=== PATIENT | female | born 2000 | race Caucasian/White ===

== ENCOUNTER 2025-02-22 07:57 | Emergency (ER) | payer MEDICAID, SELFPAY ==
--- OUTSIDE RECORDS SUMMARY | 2021-04-13 07:33 | XMS_ITS | Continuity of Care Document ---
Author Organization [facility] Address [address] [address] [place] [address] Phone Care Team Providers Care Compensation Intern Name Role Phone Update, Tech[employer] Unavailable Unavailable [...] Provider Providers Copied on Encounter Eye [facility], [address] [address], [place], [place], [address], tel:[phone] [place] No Information Update [employer]. [address] [place], [place], [address]. tel:[phone] Eye [facility], [address] [address], [place], [place], [address], tel:[phone] Ashleigh Bedoya Patient is here for a complete dilated eye exam. (chief complaint) Examination of eyes and vision with abnormal findings Z01.01Regula r astigmatism, bilateral H52.223 7 Raghu Carrasco. [address], [address], [place], [place], [address], [place]. tel:[phone] Referring Provider: Danilo Ramirez, [address] [facility], [place], [address]. tel:[phone] Family History Family Member Type Diagnosis Age At Onset Problem (finding) No relevant family hist ory Payers Payer name Insurance type Covered green party ID Authoriza tion(s) No Information Social [...]
[2025-02-22 08:02] VITALS: BP 129/90; PULSE 62; RESP 18; TEMP 36; O2SAT 100; BMI 31.9
[2025-02-22 08:19] LABS: Appearance Urine Slightly Cloudy (Clear)
--- NOTE | 2025-02-22 08:42 | ED_ITS ---
HPI - Female Genitourinary General Date Seen: 02/22/25 Chief complaint: Urogenital Problems, Female Stated complaint: possible ear infection Time Seen by Provider: 02/22/25 08:00 Source: patient Mode of arrival: ambulatory Limitations: no limitations History of Present Illness HPI Narrative: Patient is a 24-year-old female presenting for dysuria. Concerned she has a UTI. Symptoms have been going on past month. She has not been able get in sooner due to being very dizzy. She has had UTIs before but they have never lasted this long. Denies fevers or chills. Denies any flank pain. Does have some suprapubic tenderness. Has not had any vaginal bleeding or discharge. States she has not believe she is as she has had her tubes removed. No other concerns noted. Related Data Previous Rx's ?Medication ?Instructions ?Recorded nitrofurantoin macrocrystal 100 mg 100 mg PO BID #10 c aps 02/22/25 capsule Allergies Allergy/AdvReac Type Severity Reaction Status Date / Time No Known Drug Allergies Allergy Verified 02/22/25 08:07 Review of Systems Narrative: Pertinent systems reviewed and were negative unless stated in HPI Exam Narrative: Exam Narrative: Const: Well-nourished, Well-developed, in mild distress Eyes: PERRL, no conjunctival injection, and symmetrical lids HENT: Atraumatic external nose and ears. Moist mucous membranes. GI: Suprapubic tenderness, Nondistended, No rebound or guarding. MSK:Extremities w/o deformity, Normal Active ROM Skin: Warm, Dry. No rashes or lesions. Neuro: Normal Muscle tone, No focal neurological deficits. Psych: Awake, Alert, & Oriented x3. Appropriate mood and affect. Const: Vital Signs, click to edit/add: Vital Signs - 24 hr 02/22/25 08:02 Temperature 96.8 F L Pulse Rate [Right Pulse Oximeter] 62 Respiratory Rate 18 Blood Pressure [Ri ght Upper Arm] 129/90 H Pulse Oximetry 100 Oxygen Delivery Me thod Room Air Course Vital Signs Vital signs: Initial Vital Signs Temperature 96.8 F L 02/22/25 08:02 Temperature Source Temporal Artery Scan 02/22/25 08:02 Pulse Rate 62 02/22/25 08:02 Pulse Rhythm Regular 02/22/25 08:02 Pulse Strength 3+ Normal 02/22/25 08:02 Respiratory Rate 18 02/22/25 08:02 Blood Pressure 129/90 H 02/22/25 08:02 Blood Pressure Mean 103 02/22/25 08:02 Blood Pressure Position Sitting 02/22/25 08:02 Pulse Oximetry 100 02/22/25 08:02 Oxygen Delivery Method Room Air 02/22/25 08:02 Vital Signs Temperature 96.8 F L 02/22/25 08:02 Pulse Rate 62 02/22/25 08:02 Respiratory Rate 18 02/22/25 08:02 Blood Pressure 129/90 H 02/22/25 08:02 Pulse Oximetry 100 02/22/25 08:02 Oxygen Delivery Method Room Air 02/22/25 08:02 Temperature 96.8 F L 02/22/25 08:02 Pulse Rate 62 02/22/25 08:02 Respiratory Rate 18 02/22/25 08:02 Blood Pressure 129/90 H 02/22/25 08:02 Pulse Oximetry 100 02/22/25 08:02 Oxygen Delivery Method Room Air 02/22/25 08:02 MDM - Female Genitourinary MDM Narrative Medical decision making narrative: Patient is a 24-year-old female presents for concerns of a UTI. Urinalysis was collected in triage and does show signs of UTI. Do not have previous cultures to compare to. She has no signs of sepsis at this time. Overall appears well. Do believe she is safe for discharge with antibiotics. She is agreeable to this plan Lab Data Labs: Lab Results 02/22/25 Range/Units 08:12 Urine Color Yellow (Yellow) Urine Appearance Slightly Cloudy A (Clear) Urine pH 8.5 (5.0-8.5) Ur Specific [place] 1.015 (1.000-1.030) Urine Protein Negative (Negative) Urine Glucose (UA) Negative (Negative) Urine Ketones Negative (Negative) Urine Blood Trace-lysed A (Negative) Urine Nitrite Negative (Negative) Urine Bilirubin Negative (Negative) Urine Urobilinogen 0.2 (0.2-1.0) Ur Leukocyte Esterase 2+ A (Negative) Urine RBC 0-2 (0-2) Urine WBC 5-10 A (0-5) Ur Squamous Epith Cells None (None-Few) Urine Bacteria Few A (None) Discharge Plan Discharge Clinical Impression: Urinary tract infection Qualifiers: Urinary tract infection type: acute cystitis Hematuria presence: without hematuria Qualified Code(s): N30.00 - Acute cystitis without hematuria Patient Disposition: Home, Self-Care Condition: Stable Instructions: Urinary Tract Infection in Women (DC) Additional Instructions: Take the antibiotic as prescribed. Return to emergency department for new or worsening symptoms. Follow up primary care provider if symptoms are not improving Prescriptions: New nitrofurantoin macrocrystal 100 mg capsule 100 mg PO BID Qty: 10 0RF Rx Instructions: must administer with a meal/food Stand Alone Forms: [employer] Info Instructions
== END 2025-02-22 09:12 | disposition home or self-care (01) ==
LOC: ED 09:07
PROVIDERS: Emergency Provider Student in an Organized Health Care Education/Training Program
DX: N30.00 Acute cystitis without hematuria (principal)
CPT/HCPCS: 81001; 87086; 99283

== ENCOUNTER 2025-04-20 19:35 | Emergency (ER) | payer BC, SELFPAY ==
--- OUTSIDE RECORDS SUMMARY | 2021-04-13 07:33 | XMS_ITS | Continuity of Care Document ---
Author Organization [facility] Address [address] [address] [place] [address] Phone Care Team Providers Care Knot Borer Name Role Phone Update, [employer] Unavailable Unavailable [...] Date Provider Providers Copied on Encounter Eye [facility], [address] [address], [place], [place], [id number], tel:[phone] [place] No Information Update [employer]. [address] [place], [place], [id number]. tel:[phone] [facility], [address] [address], [place], [place], [address], tel:[phone] Ashleigh Beodya Patient is here for a complete dilated eye exam. (chief complaint) Examination of eyes and vision with abnormal findings Z01.01Regula r astigmatism, bilateral H52.223 Oct- 7 Raghu Carrasco. [address], [address], [place], [place], [address], [place]. tel:[phone] Referring Provider: Danilo Ramirez, [address], [place], [address]. tel:[phone] Family History Family Member Type Diagnosis Age At Onset Problem (finding) No relevant family hist ory Payers Payer name Insurance type Covered alliance party ID Authoriza tion(s) No Information Social History Type Description Quantity Date Captured Comments Alcohol Use Details Unknown Caffeine Use Details Unknown Tobacco Use Status No Information Smoking Status No Information Sex Female Chief Complaint And Reason For Visit No [...] with abnormal findings Z01.01 - Explained in detai l, diagnosis, parts of glasses prescription, visual [...]
--- OUTSIDE RECORDS SUMMARY | 2021-04-13 07:33 | XMS_ITS | Continuity of Care Document ---
Author Organization [facility] Address [address] [address] [place] [address] Phone Care Team Providers Care Engine Assembly Supervisor Name Role Phone Update, Tech[employer] Unavailable Unavailable [...] Date Provider Providers Copied on Encounter Eye [facility], [address] [address], [place], [place], [id number], tel:[phone] [place] No Information Update [employer]. [address] [place], [place], [id number]. tel:[phone] [facility], [address] [address], [place], [place], [address], tel:[phone] Ashleigh Bedoya Patient is here for a complete dilated eye exam. (chief complaint) Examination of eyes and vision with abnormal findings Z01.01Regula r astigmatism, bilateral H52.223 Oct- 7 Raghu Carrasco. [address], [address], [place], [place], [address], [place]. tel:[phone] Referring Provider: Danilo Ramirez, [address] [facility], [place], [address]. tel:[phone] Family History Family Member Type Diagnosis Age At Onset Problem (finding) No relevant family hist ory Payers Payer name Insurance type Covered republican ID Authoriza tion(s) No Information Social History Type Description Quantity Date Captured Comments Alcohol Use Details Unknown Caffeine Use Details Unknown Tobacco Use Status No Information Smoking Status No Information Sex Female Chief Complaint And Reason For Visit No Information Reason For Referral Reason For Referral No Information History Of Present Illness Encounter Date Complaint History Of Prese nt Illness {eyeChiefComplai nt_.[email or web address]_comments} Patient is here for a complete dilated [...] out the day due to eye fatigue. Functional Status Date Functional Assessmen t No Information Medications Administered Medication Instructions Dosage Effective Dates (start - stop) Status Comments No Drug Therapy Prescribed Instructions Date Instruction Colleen Silvamimi avilez - Explained in robert jefferson, diagnosis, parts of glasses prescription, visual acuity with and without correction, and recommendations for wearing glasses with patient. Trivex and anti-reflective lens materials are recommended for improved safety and optical performance. New glasses prescription given today. Will continue to monitor. Call or return sooner if any concerns Related to Regular astigmatism, bilateral H52.223 - The patient was co unseled in detail on all clinical findings and diagnoses and understands. Will continue to observe condition(s) and or symptoms. Questions and concerns were addressed. Call or return sooner if any concerns. Related to Examination of eyes and vision with abnormal findings Z01.01 Assessments Type Assessment Date No Information Patient Care Teams Name Effective Dates (start - stop) Status Members No Information
[2025-04-20 19:41] VITALS: BP 122/79; PULSE 79; RESP 18; TEMP 36.2; O2SAT 99; BMI 30.9
[2025-04-20 20:27] LABS: Appearance Urine Cloudy (Clear)
[2025-04-20 20:29] LABS: Ur HCG Qualitative* Negative (Negative)
--- NOTE | 2025-04-20 20:55 | ED.GENADULT ---
HPI - General Adult General Date Seen: 04/20/25 Chief complaint: Back Injury/Pain Stated complaint: lower back pain Time Seen by Provider: 04/20/25 20:42 History of Present Illness HPI narrative: Patient is a 25-year-old young woman here for evaluation of low back pain and dysuria which has been going on for 3 days. She has had some frequency and urgency as well. She is concerned about possible UTI. She has not had any flank pain, fevers, nausea or vomiting. No history of kidney stones. No suspicion of . Related Data Home Medications ?Medication ?Instructions ?Recorded ?Confirmed No Known Home Medications 04/20/25 04/20/25 Allergies Allergy/AdvReac Type Severity Reaction Status Date / Time No Known Drug Allergies Allergy Verified 04/20/25 19:46 Review of Systems Status of ROS: Reports: 6 or more systems reviewed and unremarkable except as noted in History and below [facility] Social History Smoking Status: Never smoker How often do you have a drink containing alcohol: never How often do you have six or more drinks on one occasion: Never AUDIT-C Alcohol total score: 0 Non-prescribed substance use: denies use service: No Exam Narrative: Exam Narrative: Vital signs reviewed In general, alert, nontoxic young woman. Head: Normocephalic, atraumatic. Eyes: Sclera clear. ENT: Mucous membranes moist. Neck: Supple without adenopathy. Heart: Regular rate and rhythm without murmur. Lungs: Clear. No increased work of breathing, crackles or wheezes. Abdomen: Soft, nontender to palpation. No CVA tenderness. Extremities: Well perfused, pulses intact. No significant edema. Neurologic: Alert, conversant. Speech fluent, face symmetric. Moves all extremities equally. Skin: Warm, dry well perfused. Affect: Normal. Const: Vital Signs, click to edit/add: Vital Signs - 24 hr 04/20/25 19:41 Temperature 97.1 F L Pulse Rate [Right Pulse Oximeter] 79 Respiratory Rate 18 Blood Pressure [Ri ght Upper Arm] 122/79 Pulse Oximetry 99 Oxygen Delivery Me thod Room Air Course Course ED Course: Urinalysis and UPT was obtained. The urinalysis is strongly suggestive of urinary tract infection with 3+ leukocyte esterase, greater than 100 white blood cells. 0-2 red blood cells, few bacteria, few squamous cells. test is negative. Suspicion of kidney stone is low given the absence of blood in the urine and absence of symptoms suggestive of kidney stone. I think it is reasonable to treat her for urinary tract infection, I prescribed Macrobid and Pyridium from [facility]. Take as prescribed, return for worsening symptoms such as severe uncontrolled pain, shaking chills, fevers, vomiting or other worsening. Urine culture pending. Primary care follow-up if not improving despite appropriate treatment. Vital Signs Vital signs: Initial Vital Signs Temperature 97.1 F L 04/20/25 19:41 Temperature Source Temporal Artery Scan 04/20/25 19:41 Pulse Rate 79 04/20/25 19:41 Pulse Rhythm Regular 04/20/25 19:41 Pulse Strength 3+ Normal 04/20/25 19:41 Respiratory Rate 18 04/20/25 19:41 Blood Pressure 122/79 04/20/25 19:41 Blood Pressure Mean 93 04/20/25 19:41 Blood Pressure Position Sitting 04/20/25 19:41 Pulse Oximetry 99 04/20/25 19:41 Oxygen Delivery Method Room Air 04/20/25 19:41 Vital Signs Temperature 97.1 F L 04/20/25 19:41 Pulse Rate 79 04/20/25 19:41 Respiratory Rate 18 04/20/25 19:41 Blood Pressure 122/79 04/20/25 19:41 Pulse Oximetry 99 04/20/25 19:41 Oxygen Delivery Method Room Air 04/20/25 19:41 Temperature 97.1 F L 04/20/25 19:41 Pulse Rate 79 04/20/25 19:41 Respiratory Rate 18 04/20/25 19:41 Blood Pressure 122/79 04/20/25 19:41 Pulse Oximetry 99 04/20/25 19:41 Oxygen Delivery Method Room Air 04/20/25 19:41 Medical Decision Making Lab Data Labs: Lab Results 04/20/25 Range/Units 20:15 Urine Color Dark yellow (Yellow) Urine Appearance Cloudy A (Clear) Urine pH 7.5 (5.0-8.5) Ur Specific [place] 1.020 (1.000-1.030) Urine Protein 3+ A (Negative) Urine Glucose (UA) Negative (Negative) Urine Ketones Trace A (Negative) Urine Blood 3+ A (Negative) Urine Nitrite Negative (Negative) Urine Bilirubin 1+ A (Negative) Urine Urobilinogen 2.0 A (0.2-1.0) Ur Leukocyte Esterase 3+ A (Negative) Urine RBC 0-2 (0-2) Urine WBC >100 A (0-5) Ur Squamous Epith Cells Few (None-Few) Urine Bacteria Few A (None) Fine Granular Casts Few A (None) Urine HCG, Qual Negative (Negative) Discharge Plan Discharge Clinical Impression: Urinary tract infection Patient Disposition: Home, Self-Care Condition: Stable Instructions: Urinary Tract Infection in Women (DC) Additional Instructions: Macrobid as prescribed. You can use Pyridium to help with symptoms of burning, urgency etcetera over the next 1-2 days while we are waiting for the antibiotic to kick in. We will send your urine for culture, if we need to adjust her antibiotic we will call you. In the meantime, if you are feeling worse, develops severe uncontrolled pain, fevers, shaking chills, vomiting or other worsening, return to the emergency department at any time. Prescriptions: No Action No Known Home Medications Follow Up/Referrals: Provider,Not a Local [Primary Care Provider, Family Practice] Stand Alone Forms: [employer] Info Instructions
[2025-04-20] MEDS: PHENAZOPYRIDINE HCL 200 MG TABLET PO (21:29)
[2025-04-20] MEDS: NITROFURANTOIN MONOHYD MACRO 100 MG CAPSULE PO (21:29)
== END 2025-04-20 21:51 | disposition home or self-care (01) ==
PROVIDERS: Emergency Provider Emergency Medicine
DX: N39.0 Urinary tract infection, site not specified (principal)
CPT/HCPCS: 81001; 81025; 87086; 99283; 99284; A9270

== ENCOUNTER 2025-04-23 20:03 | Emergency (ER) | payer BC, SELFPAY ==
--- OUTSIDE RECORDS SUMMARY | 2021-04-13 07:33 | XMS_ITS | Continuity of Care Document ---
Author Organization [facility] Address [address] [address] [place] [address] Phone Care Team Providers Care Central Service Technician Name Role Phone Update, [employer] Unavailable Unavailable Allergies, Adverse Reactions, Alerts Substance Reaction Status Criticality No Known Allergies Active No Inform ation Medications Medication Instructions Dosage Effective Dates (start - stop) Status Comments No Drug Therapy Prescribed Procedures Procedure Date Comprehensive eye exam, new patient Determination of refractive state Advance Directives Directive Yes / No Effective Date File Name No Information Encounters Encounter Description Practice Location Reason(s) For Visit Diagnoses Date Provider Providers Copied on Encounter Eye [facility], [address] [address], [place], [place], [id number], tel:[phone] [place] No Information Update [facility]. [address] [place], [place], [id number]. tel:[phone] [facility], [address] [address], [place], [place], [address], tel:[phone] Ashleigh Bedoya Patient is here for a complete dilated eye exam. (chief complaint) Examination of eyes and vision with abnormal findings Z01.01Regula r astigmatism, bilateral H52.223 7 Raghu Carrasco. [address], [address], [place], [place], [id number], [place]. tel:[phone] Referring Provider: Danilo Ramirez, [address], [place], [address]. tel:[phone] Family History Family Member Type Diagnosis Age At Onset Problem (finding) No relevant family hist ory Payers Payer name Insurance type Covered constitution party ID Authoriza tion(s) No Information Social History Type Description Quantity Date Captured Comments Alcohol Use Details Unknown Caffeine Use Details Unknown Tobacco Use Status No Information Smoking Status No Information Sex Female Sexual Orientation Don't Know Chief Complaint And Reason For Visit No Information Reason For Referral Reason For Referral No Information History Of Present Illness Encounter Date Complaint History Of Prese nt Illness Patient is here for a complete dilated eye exam. Patient is here for a complete dilated eye exam, both eyes. Vision has decreased at a distance in both eyes since her last eye exam several years ago. She used to wear glasses in the past but lost them and never replaced. She has trouble with lights driving at night and experiences headaches through out the day due to eye fatigue. {eyeChiefComplai [email or web address]_comments} Functional Status Date Functional Assessmen t No Information Medications Administered Medication Instructions Dosage Effective Dates (start - stop) Status Comments No Drug Therapy Prescribed Instructions Date Instruction Additional Infor fatmata - The patient was co unseled in detail on all clinical findings and diagnoses and understands. Will continue to observe condition(s) and or symptoms. Questions and concerns were addressed. Call or return sooner if any concerns. Related to Examination of eyes and vision with abnormal findings Z01.01 - Explained in robert l, diagnosis, parts of glasses prescription, visual acuity with and without correction, and recommendations for wearing glasses with patient. Trivex and anti-reflective lens materials are recommended for improved safety and optical performance. New glasses prescription given today. Will continue to monitor. Call or return sooner if any concerns Related to Regular astigmatism, bilateral H52.223 Assessments Type Assessment Date No Information Patient Care Teams Name Effective Dates (start - stop) Status Members No Information
--- OUTSIDE RECORDS SUMMARY | 2021-04-13 07:33 | XMS_ITS | Continuity of Care Document ---
Author Organization [facility] Address [address] [address] [place] [address] Phone Care Team Providers Care Longwall Machine Operator Helper Name Role Phone Update, [employer] Unavailable Unavailable [...] Date Provider Providers Copied on Encounter Eye [facility], [address] [address], [place], [place], [id number], tel:[phone] [place] No Information Update [employer]. [address] [place], [place], [address]. tel:[phone] [facility], [address] [address], [place], [place], [address], tel:[phone] Ashleigh Bedoya Patient is here for a complete dilated eye exam. (chief complaint) Examination of eyes and vision with abnormal findings Z01.01Regula r astigmatism, bilateral H52.223 7 Raghu Carrasco. [address], [address], [place], [place], [address], [place]. tel:[phone] Referring Provider: Danilo Ramirez, [address], [place], [address]. tel:[phone] Family History Family Member Type Diagnosis Age [...]
--- OUTSIDE RECORDS SUMMARY | 2025-04-23 20:05 | XMS_ITS | Patient Health Record ---
Author Organization [facility] Address [address] [place] [address] Care Team Providers Care Pneumatic Systems Operator Name Role Phone Eamon GUTIERREZ, Mary Primary Care Provider Sang GUTIERREZ, HENRY Unavailable [phone] Trent GUTIERREZ, Padmini(Gene) Unavailable Reason For Referral No Information Plan Of Treatment No Information
[2025-04-23 20:32] VITALS: BP 121/83; PULSE 106; RESP 16; TEMP 37.4; O2SAT 99; BMI 30.9
--- NOTE | 2025-04-23 20:44 | ED_ITS ---
HPI - General Adult General Time Seen by Provider: 20:44 Date Seen: 04/23/25 Chief complaint: Cough Stated complaint: Symptoms worsened Time Seen by Provider: 04/23/25 20:43 Source: patient Mode of arrival: ambulatory History of Present Illness HPI narrative: Deborah is a 25-year-old female who presents the emergency department for evaluation of flu-like symptoms. Patient presents now with her sister, reports that she was recently here on 04/20/2025 for lower urinary symptoms started on antibiotics after being diagnosed with urinary tract infection. Patient states she was started on Macrobid, Pyridium, discontinued her medications as directed. Patient reports symptoms have improved however still has some urinary symptoms (dysuria). Patient reports that today she developed some right-sided low back pain, chills, body aches, rhinorrhea, dry cough. Patient states that she is not sure if she has developed a virus or she is having worsening of her urinary symptoms. Patient denies any fevers, nausea, vomiting, chest pain, shortness of breath, abdominal pain. No other complaints. No medications prior to arrival. Related Data Previous Rx's ?Medication ?Instructions ?Recorded nitrofurantoin 100 mg PO Q12H 5 days #10 ca ps 04/20/25 monohydrate/macrocrystals 100 mg capsule (Macrobid) phenazopyridine 200 mg tablet 200 mg PO Q8H PRN pain 6 doses #6 04/20/25 tabs Allergies Allergy/AdvReac Type Severity Reaction Status Date / Time No Known Drug Allergies Allergy Verified 04/23/25 20:35 Review of Systems Narrative: Past medical history, past surgical history, medications, allergies, family history, and social history were reviewed with the patient. No additional pertinent items. A medically appropriate review of systems was performed with pertinent positives and negatives noted in HPI, all other systems negative. PFSH PFSH Social History Smoking Status: Never smoker Second hand tobacco smoke exposure: No How often do you have a drink containing alcohol: never How often do you have six or more drinks on one occasion: Never AUDIT-C Alcohol total score: 0 Non-prescribed substance use: denies use service: No Exam Narrative: Exam Narrative: General: Afebrile, no acute distress HEENT: Normocephalic, atraumatic, conjunctiva normal. MMM Neck: non-tender, supple Cardio: regular rate. regular rhythm Resp: Normal work of breathing, no respiratory distress, lungs clear bilaterally, no wheezing, rhonchi, rales Chest/Back: no visual signs of trauma, no midline tenderness, no CVA tenderness Abdomen: soft, non distension, no tenderness, no peritoneal signs Neuro: alert and fully oriented. CN II-XII grossly intact. Grossly normal strength and sensation in all extremities. MSK: no deformities. Normal range of motion Integumentary/Skin: no rash visualized, normal color Psych: normal affect, normal behavior Const: Vital Signs, click to edit/add: Vital Signs - 24 hr 04/23/25 20:32 04/23/25 21:14 04/23/25 22:16 Temperature 99.4 F 99.4 F 99.4 F Pulse Rate [Pulse Oximeter] 106 H Respiratory Rate 16 Blood Pressure [Ri ght Upper Arm] 121/83 Pulse Oximetry 99 Oxygen Delivery Me thod Room Air Course Vital Signs Vital signs: Initial Vital Signs Temperature 99.4 F 04/23/25 20:32 Temperature Source Temporal Artery Scan 04/23/25 20:32 Pulse Rate 106 H 04/23/25 20:32 Respiratory Rate 16 04/23/25 20:32 Respiratory Effort Normal, Spontaneous, Non-Labored 04/23/25 20:32 Respiratory Depth Normal 04/23/25 20:32 Respiratory Pattern Normal 04/23/25 20:32 Blood Pressure 121/83 04/23/25 20:32 Blood Pressure Mean 95 04/23/25 20:32 Blood Pressure Position Sitting 04/23/25 20:32 Pulse Oximetry 99 04/23/25 20:32 Oxygen Delivery Method Room Air 04/23/25 20:32 Vital Signs Temperature 99.4 F 04/23/25 20:32 Pulse Rate 106 H 04/23/25 20:32 Respiratory Rate 16 04/23/25 20:32 Blood Pressure 121/83 04/23/25 20:32 Pulse Oximetry 99 04/23/25 20:32 Oxygen Delivery Method Room Air 04/23/25 20:32 Temperature 99.4 F 04/23/25 22:16 Pulse Rate 106 H 04/23/25 20:32 Respiratory Rate 16 04/23/25 20:32 Blood Pressure 121/83 04/23/25 20:32 Pulse Oximetry 99 04/23/25 20:32 Oxygen Delivery Method Room Air 04/23/25 20:32 Medications Administered Medications: Discontinued Medications Generic Name Dose Route Start Last Admin Trade Name Monica PRN Reason Stop Dose Admin Sodium Chloride 1,000 mls @ 1,000 mls/hr 04/23/25 21:00 04/23/25 22:07 0.9 % Sodium Chloride 1000 Ml IV 04/23/25 21:59 Infused .Q1H ANNMARIE Infusion Ketorolac Tromethamine 15 mg 04/23/25 21:00 04/23/25 21:14 Ketorolac 15 Mg/Ml Inj IVP 04/23/25 21:01 15 mg ONCE ONE Administration Medical Decision Making MDM Narrative Medical decision making narrative: Deborah is a 25-year-old female who presents the emergency department for evaluation of flu-like symptoms. Upon arrival patient is nontoxic appearing, afebrile, no distress. Patient with slight tachycardia with a heart rate of 106, otherwise hemodynamically stable blood pressure 121/83, oxygen 99% on room air. Differential diagnosis includes but is not limited to viral illness versus pyelonephritis versus cystitis versus dehydration versus metabolic electrolyte abnormalities among others. Upon arrival patient was treated with IV Toradol, 1 L IV fluid bolus, comprehensive labs, urinalysis, viral testing performed. Per chart review I reviewed patient's most recent ED visit 04/20/2025 as well as urinalysis. Urine culture grew out mixed Gram-positive judit final results. Viral testing negative for influenza/COVID/RSV. Comprehensive labs unremarkable with no leukocytosis white blood cell count 7.59, hemoglobin 12, potassium low at 3.2 which was replaced in emergency department, no other acute metabolic electrolyte abnormality, creatinine normal at 0.7. AST and ALT slightly 51/56. Urinalysis with significant improvement, trace blood, positive nitrates, nega tive leukocyte esterase, no bacteria, 2-5 white blood cells. Overall patient is nontoxic appearing, afebrile, no leukocytosis, prior urine culture with mixed Gram-positive judit results. Todays urinalysis with improvement. At this time I would continue supportive care with continuation of oral antibiotics, oral hydration, Tylenol, ibuprofen, encouraged close outpatient follow-up in clinic this week if ongoing symptoms. Strict return precautions discussed if persistent high fever, persistent vomiting, worsening symptoms. Patient understands and agrees the plan. Medical Records Medical records reviewed: Yes I reviewed the patient's medical records Lab Data Lab results reviewed: Yes I reviewed the patient's lab results Labs: Lab Results 04/23/25 04/23/25 04/23/25 Range/Units 21:05 21:10 21:22 WBC 7.59 (4.50-11.00) K/uL RBC 4.89 (4.00-5.20) m/uL Hgb 12.0 (12.0-16.0) gm/dL Hct 37.4 (33.0-51.0) % MCV 77 L (80-100) fL MCH 25 L (26-34) pg MCHC 32 (32-36) gm/dL RDW Coeff of [place] 14.7 (11.5-15.5) % Plt Count 280 (140-440) K/uL Neut % (Auto) 69.1 (42.0-72.0) % Lymph % (Auto) 20.0 (20-44) % [place] % (Auto) 9.1 (0.0-11.0) % Eos % (Auto) 1.3 (0.0-7.0) % Baso % (Auto) 0.4 (0.0-3.0) % Neut # (Auto) 5.24 (1.7-7.0) K/uL Lymph # (Auto) 1.52 (0.90-2.90) K/uL [place] # (Auto) 0.70 (0.00-0.90) K/UL Eos # (Auto) 0.10 (0.00-0.50) K/uL Baso # (Auto) 0.03 (0.00-0.30) K/uL Abs Immat Gran (auto) 0.01 (0.00-0.30) K/uL Imm/Tot Granulo (auto) 0.1 % Sodium 135 (135-149) mmol/L Potassium 3.2 L (3.6-5.1) mmol/L Chloride 103 (96-114) mmol/L Carbon Dioxide 23 (20-32) mmol/L Anion Gap 9 (7-15) mEq/L BUN 8 (5-24) mg/dL Creatinine 0.7 (0.5-1.5) mg/dL Estimated Creat Clear 104.24 Estimated GFR 121 ml/min Glucose 98 (60-115) mg/dL Lactate 0.6 (0.5-1.9) mmol/L Calcium 8.7 (8.4-10.6) mg/dL Total Bilirubin 1.1 (0.1-1.5) mg/dL AST 51 H (12-35) U/L ALT 56 H (4-35) U/L Alkaline Phosphatase 78 (40-150) U/L Total Protein 7.2 (6.0-8.3) g/dL Albumin 4.1 (3.3-5.0) g/dL Urine Color Yellow (Yellow) Urine Appearance Clear (Clear) Urine pH 6.0 (5.0-8.5) Ur Specific [place] 1.020 (1.000-1.030) Urine Protein Negative (Negative) Urine Glucose (UA) Negative (Negative) Urine Ketones Negative (Negative) Urine Blood Trace-intact A (Negative) Urine Nitrite Positive A (Negative) Urine Bilirubin Negative (Negative) Urine Urobilinogen 0.2 (0.2-1.0) Ur Leukocyte Esterase Negative (Negative) Urine RBC 0-2 (0-2) Urine WBC 2-5 (0-5) Ur Squamous Epith Cells None (None-Few) Urine Bacteria None (None) SARS-CoV-2 (PCR) Negative SARS-CoV-2 (Negative) Influenza Type A (PCR) Negative PCR FLU A (Negative) Influenza Type B (PCR) Negative PCR FLU B (Negative) RSV (PCR) Negative PCR RSV (Negative) Discharge Plan Discharge Clinical Impression: Generalized body aches, Upper respiratory symptom, UTI (urinary tract infection) Patient Disposition: Home, Self-Care Condition: Stable Additional Instructions: Please follow-up with your primary care provider in the next 2-3 days for further evaluation and follow-up. Please call Friday to schedule appointment. Please rest, drink plenty of fluids. Please alternate taking Tylenol 1000 mg and ibuprofen 600 mg every 6 hours as needed for fever, body aches. Please continue antibiotics as directed. Please return to the emergency department if you develop persistent high fever, severe pain, persistent vomiting, worsening symptoms. It was a pleasure taking care of you today. We hope you feel better soon. Prescriptions: No Action nitrofurantoin monohyd/m-cryst [Macrobid] 100 mg capsule 100 mg PO Q12H 5 Days Qty: 10 0RF Rx Instructions: must administer with a meal/food phenazopyridine 200 mg tablet 200 mg PO Q8H PRN (Reason: pain) Qty: 6 0RF Follow Up/Referrals: Provider,Not a Local [Primary Care Provider, Family Practice] Stand Alone Forms: MyHealth Info Instructions
[2025-04-23 21:14] VITALS: TEMP 37.4
[2025-04-23 21:17] LABS: Lactate* 0.6 mmol/L (0.5-1.9)
[2025-04-23 21:21] LABS: Hematocrit* 37.4 % (33.0-51.0); Hemoglobin* 12.0 gm/dL (12.0-16.0); Immature Granulocytes Abs Auto 0.01 K/uL (0.00-0.30); Immature Granulocytes Pct Auto 0.1 %; Lymphocytes Absolute Auto 1.52 K/uL (0.90-2.90); Mean Corpuscular HGB Conc 32 gm/dL (32-36); Mean Corpuscular Hemoglobin 25 pg (26-34); Mean Corpuscular Volume 77 fL (80-100); RDW Coefficient of Variation % 14.7 % (11.5-15.5); Red Blood Count* 4.89 m/uL (4.00-5.20); White Blood Count* 7.59 K/uL (4.50-11.00)
[2025-04-23 21:22] LABS: Slide Review Reflex No
[2025-04-23 21:34] LABS: Albumin* 4.1 g/dL (3.3-5.0); Chloride* 103 mmol/L (96-114); Potassium* 3.2 mmol/L (3.6-5.1); Sodium* 135 mmol/L (135-149)
[2025-04-23 21:37] LABS: Alanine Aminotransferase* 56 U/L (4-35); Alkaline Phosphatase* 78 U/L (40-150); Anion Gap 9 mEq/L (7-15); Aspartate Amino Transferase* 51 U/L (12-35); Bilirubin Total* 1.1 mg/dL (0.1-1.5); Blood Urea Nitrogen* 8 mg/dL (5-24); Calcium* 8.7 mg/dL (8.4-10.6); Carbon Dioxide* 23 mmol/L (20-32); Creatinine* 0.7 mg/dL (0.5-1.5); Est. Creatinine Clearance* 104.24; Estimated Glomerular Filt Rate 121 ml/min; Glucose* 98 mg/dL (60-115); Total Protein* 7.2 g/dL (6.0-8.3)
[2025-04-23 21:42] LABS: Appearance Urine Clear (Clear)
[2025-04-23 21:53] LABS: PCR FLU A Negative PCR FLU A (Negative); PCR FLU B Negative PCR FLU B (Negative); PCR RSV Negative PCR RSV (Negative); SARS PCR* Negative SARS-CoV-2 (Negative)
[2025-04-23 22:16] VITALS: TEMP 37.4
[2025-04-23] MEDS: POTASSIUM CHLORIDE 10 MEQ CAPSULE ER 40 MEQ PO (22:36)
[2025-04-23 22:41] VITALS: BP 125/87; PULSE 89; RESP 16; TEMP 36.9; O2SAT 99
[2025-04-23 22:42] VITALS: BP 125/87; PULSE 89; RESP 16; TEMP 36.9
== END 2025-04-23 22:42 | disposition home or self-care (01) ==
PROVIDERS: Emergency Provider Emergency Medicine
DX: R52 Pain, unspecified (principal); R09.89 Other specified symptoms and signs involving the circulatory and respiratory systems; N39.0 Urinary tract infection, site not specified
CPT/HCPCS: 36415; 80053; 81001; 83605; 85025; 87086; 87631; 96374; 99284; 99285; A9270; J1885; J7030